=== PATIENT | male | born 1985 | race Two or more races ===

== ENCOUNTER → 2023-04-10 | Emergency (ER) | payer BC ==
[~2023-04-10] VITALS: Ht 177.8 cm; Wt 68.0 kg
[~2023-04-10] MED LIST: IBUPROFEN 600MG TABLET PO ONE
[2023-04-10 11:46] VITALS: BP 113/76; RESP 16; TEMP 98.7; O2SAT 99
[2023-04-10 11:50] VITALS: PULSE 80
== END ==
LOC: ER 12:05
DX: R07.89 Other chest pain (principal)
CPT/HCPCS: 99281